=== PATIENT | female | born 1995 | race Caucasian/White ===

== ENCOUNTER 2023-01-13 15:36 | Emergency (ER) | payer OTHER, SELFPAY ==
[2023-01-13 16:02] VITALS: BP 162/83; PULSE 100; RESP 17; TEMP 36.6; O2SAT 98; BMI 38.7
--- NOTE | 2023-01-13 20:02 | ED_ITS ---
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 The patient has no blurred vision, double vision, she is not dizzy nor weak or lightheaded, she has no numbness, tingling or weakness of her extremities, she is not ataxic. She denies any chest pain or shortness of breath has no abdominal pain or abnormal urine pattern. She was sent here for MRI Related Data Home Medications Medication Instructions Recorded Confirmed No Known Home Medications 01/13/23 01/13/23 Allergies Allergy/AdvReac Type Severity Reaction Status Date / Time No Known Drug Allergies Allergy Verified 01/13/23 16:04 Review of Systems Review of Systems Narrative: GENERAL: Denies chills, fatigue, malaise, fever, sweats. HEENT: Denies sinus pain, ear pain, sore throat, difficulty swallowing, dizziness. RESPIRATORY: Denies dyspnea, cough, wheezing, hemoptysis, sputum. CARDIOVASCULAR: Denies chest pain, palpitations, orthopnea, edema, GASTROINTESTINAL: Denies nausea, vomiting, abdominal pain, diarrhea, constipation, melena. : Denies dysuria, frequency, incontinence, hematuria, urinary retention. MUSCULOSKELETAL: denies weakness, joint pain, or bony pain SKIN: Denies rash, skin lesions, or other NEUROLOGIC: Denies weakness, headache, numbness, change in speech, confusion, seizures, incoordination. PSYCHIATRIC: No concerning psychosocial issues. 12 point review of systems is negative except for those stated above Patient History Social History Smoking Status: Never smoker Smoking Status: Never smoker alcohol intake frequency: other Substance Use Type: does not use Exam Narrative Exam Narrative: GENERAL: [27] year old patient appears stated age. Well-developed patient, in mild distress. HEAD: Atraumatic. Normocephalic. EYES: Pupils equal round and reactive. Extraocular motions intact. No scleral icterus. No injection or drainage. No abnormal findings on funduscopic exam. Bedside point of care ultrasound measures bilateral optic nerves sheath at 0.35 and 0.36 cm each ENT: Nose without bleeding, purulent drainage. Throat without erythema, tonsillar hypertrophy or exudate. Airway patent. NECK: Trachea midline. Non tender CARDIOVASCULAR: Regular rate and rhythm without murmurs, gallops, or rubs. RESPIRATORY: Clear to auscultation. Breath sounds equal bilaterally. No wheezes, rales, or rhonchi. GASTROINTESTINAL: Abdomen soft, non-tender, nondistended. EXTREMITIES: No edema or joint tenderness. BACK: Nontender without deformity or crepitance. No flank tenderness. NEURO: AOx3. SKIN: No rash or erythema of visible areas Initial Vital Signs Initial Vital Signs: Vital Signs Temperature 98 F 01/13/23 16:02 Pulse Rate 100 H 01/13/23 16:02 Respiratory Rate 17 01/13/23 16:02 Blood Pressure 162/83 H 01/13/23 16:02 Pulse Oximetry 98 01/13/23 16:02 Oxygen Delivery Method Room Air 01/13/23 16:02 Course Orders Ordered: ED Orders 01/13/23 20:06 MR head/brain wo con Stat Vital Signs Vital signs: Vital Signs - 8 hr 01/13/23 16:02 Temperature 98 F Pulse Rate 100 H Respiratory Rate 17 Blood Pressure 162/83 H Pulse Oximetry 98 Oxygen Delivery Method Room Air MDM - Eye Problem MDM Narrative Medical decision making narrative: [27-year-old] female patient presents with optometry concern about possible bilateral swelling optic nerves. Patient has no symptoms Multiple etiologies for patient's symptoms considered including, but not limited to: [Increased intracranial pressure versus other] Prior Charts reviewed in our EMR Primary Historian: patient Imaging reviewed: Findings and discharge diagnosis discussed with patient/family followed by verbalization of understanding Return precautions discussed with patient/family whom verbalize understanding of diagnosis and plan Discharge Plan Departure Patient Disposition: Home Clinical Impression: Feared complaint without diagnosis Activity Restrictions/Additional Instructions: There is no evidence of an emergent or life threatening illness at this time, but follow up with your doctor in 1-2 days is recommended nonetheless to continue to rule out serious underlying causes of your symptoms. Please call the office for an appointment. Please return to the Emergency Department for any worsening or persistent symptoms. Please take medications as directed. Prescriptions: No Action No Known Home Medications Stand Alone Forms: Patient Portal/API
--- NOTE | 2023-01-13 20:06 | DI.MRI.S_ITS ---
PROCEDURE: MR HEAD/BRAIN WO CON INDICATIONS: sent by ophtho due to swollen optic nerves TECHNIQUE: Noncontrast axial T1 spin echo, axial T2 fast spin echo, sagittal and axial FLAIR, coronal T2 fast spin echo, axial gradient echo, axial diffusion and ADC through the brain. COMPARISON: None. FINDINGS: Image quality: There is mild motion artifact. CSF Spaces: Basal cisterns are patent. No extra-axial fluid collections. Ventricles are normal in size and shape. Brain: No intracranial hemorrhage, mass, or mass effect. Myers/white matter interface is normal. Brainstem appears normal. Diffusion-weighted images demonstrate no acute infarcts. No evidence of mass effect on the optic chiasm. Normal intravascular flow voids are present. Skull and face: Calvarium has normal marrow signal. Orbits appear within normal limits. The globes are intact and symmetric in size. No intraorbital mass or fluid collection identified. Sinuses: Sinuses and mastoids are clear. IMPRESSION: 1. No acute intracranial abnormality. 2. No discrete intraorbital mass or fluid collections. Dictated by: Lars Blanton M.D. on 01/13/2023 at 21:32 Approved by: Lars Blanton M.D. on 01/13/2023 at 21:35
== END 2023-01-13 21:52 | disposition home or self-care (01) ==
PROVIDERS: Emergency Provider Emergency Medicine
DX: H46.9 Unspecified optic neuritis (principal); H53.9 Unspecified visual disturbance
CPT/HCPCS: 70551; 99281; 99283